=== PATIENT | female | born 1935 | race Caucasian/White ===

== ENCOUNTER 2020-02-26 17:58 | Inpatient (IN) | payer OTHER ==
[~2020-02-26] VITALS: Ht 167.6 cm; Wt 72.1 kg
[2020-02-26] VITALS (9 sets, daily range): BP systolic 55–188; BP diastolic 26–75
--- NOTE | ~2020-02-26 | EMS ---
[address] [address] EMS Patient Care Report Name: ADELITA LYNNE Room: [address] IN [facility]#: [id number] Admission: 02/26/20 Attend Phys: Erickson Ortega MD Discharge: Date of : 35 Report #: [id number] THIS REPORT FOR: //name// Report Transmitted: 03/05/2020 10:57 EMS Care Summary [employer] [facility] Incident [phone] @ 02/26/2020 16:51 Incident Location [address] [place] [address] Patient ADELITA LYNNE Female, 84 Years 1935 Patient Address [address] [place] [address] Patient History Dementia, Patient Allergies No known allergies, Patient Medications Donepezil, Chief Complaint SOA Disposition Transported Lights/Bowers Dispatch Reason Breathing Problem Transported To [facility] Narrative Upon EMS arrival the patient was sitting in a chair in a bedroom in the residence A&Ox0 GCS 8 with a c/c of SOA and altered mental status x2 days. The patient had labored and tachypneic respiration with audible wet lung sounds and the patient was cyanotic and mottled. [address] [address] EMS Patient Care Report Name: ADELITA LYNNE Room: [facility] IN [facility]#: [id number] Admission: 02/26/20 Attend Phys: Erickson Ortega MD Discharge: Date of : 35 Report #: [id number] The patient's and daughter in law were in the home and stated that the patient had been extremely lethargic and weak for the past two days. They stated that the patient has also been experiencing difficulty breathing for the past 2 days and they have been unable to get the patient to eat or drink anything. They stated that the patient has dementia and is oriented to self only. They state she sometimes is aware of her family members but is not oriented to time, place or event. The patient's family stated that the patient is blind but suffers from no additional medical problems. The patient's family state that the patient is normally fully alert and is able to follow most commands. They stated that the patient has not left the house or come into contact with any known COVID-19 exposures but they have been out to the grocery store and done some other shopping during the past few weeks. EMS donned all required PPE for a suspected COVID-19 patient. EMS assessed the patient on scene and transferred the patient to a stair chair. The patient was secured with straps and moved out the front door of the residence to the cot. The patient was transferred to the cot, secured with straps and rails raised. The patient was loaded into the ambulance for transport to [facility]. The patient was attached to the air sampling and monitoring and vitals were assessed. The patient was found to be hypotensive, tachycardia and hypoxic. The patient was placed on a capnocannula at 6 L and ETCO2 was assessed. Defibrillation pads were placed on the patient as a precaution based on her condition. The patient was found to be in sinus tach. The patient's lungs had audible wet sounds and rhonchi and rales were present upon auscultation. An NPA was placed in the patient's left nare and the patient was placed on a NRB at 15L. This improved the patient's SPO2 but not her ETCO2. The patient continued to remain unresponsive. A 20 gauge IV was started in the patient's left hand and secured with a saline lock. The patient's blood pressure remained hypotensive but increased with the administration of O2. The patient's vitals and condition were continuously monitored throughout transport. The patient's overall condition remained unchanged throughout transport. The patient's skin color and condition was slightly improved upon arrival to the hospital with the administration of O2. The patient's respirations remained tachypneic and labored. No change in mental status was noted. A precautionary 12-lead EKG was performed and no signs [place] [address] EMS Patient Care Report Name: ADELITA LYNNE Room: [address] IN [facility]#: [id number] Admission: 02/26/20 Attend Phys: Erickson Ortega MD Discharge: Date of : 35 Report #: [id number] Initial Vitals @17:43P: 98,R: 30,BP: 117/96,GCS: 8,EtCO2: 17,SpO2: 94,Revised Trauma: 9, @17:49P: 101,R: 30,BP: 121/34,GCS: 8,EtCO2: 16,SpO2: 95,Revised Trauma: 9, @17:29P: 92,R: 30,BP: 73/27,GCS: 8,Temp: 97F,EtCO2: 18,SpO2: 84,Revised Trauma: 7, Assessments @17:05MENTAL:Unresponsive,SKIN:Cold,Cyanotic,Mottled,Pale,HEENT:Eyes: Right: Blind,Eyes: Left: Blind,Head/Face: No Abnormalities,Neck/Airway: No Abnormalities,LUNG SOUNDS:General: No Abnormalities,ABDOMEN:General: No Abnormalities,PELVIS//GI:No Abnormalities,EXTREMITIES:Left Arm: No Abnormalities,Right Arm: No Abnormalities,Left Leg: No Abnormalities,Right Leg: No Abnormalities,PULSE:NEURO: Impression Respiratory Failure Procedures @17:30Saline Lock 10cc (20 ga) Site: Hand-LeftResponse: UnchangedSucceeded@17:29 cc (20 ga) Site: Antecubital-LeftResponse: UnchangedFailed@17:40NPA Response: ImprovedSucceeded@17:27Oxygen FlowRate: 6 Device: CO2 Nasal Cannula Response: ImprovedSucceeded@17:41Oxygen FlowRate: 15 Device: Non Re-breather Mask (NRB) Response: ImprovedSucceeded@17:04ALS AssessmentResponse: UnchangedSucceeded@17:5012-Lead ECGResponse: UnchangedSucceeded@17:29General CommentsResponse: Unchanged Timeline 16:51,Call Received 16:51,Dispatched 16:56,En Route 17:03,On Scene 17:04,At Patient 17:04,ALS Assessment,Response: UnchangedSucceeded, 17:27,Depart Scene 17:27,Oxygen FlowRate: 6 Device: CO2 Nasal Cannula Response: ImprovedSucceeded, 17:29, cc 20 ga Site: Antecubital-Left,Response: UnchangedFailed, 17:29,General Comments,Response: Unchanged 17:29,BP: 73/27 M,PULSE: 92,RR: 30 R,SPO2: 84 Ox,ETCO2: 18 ,BG: ,PAIN: ,GCS: 8, 17:30,Saline Lock 10cc 20 ga Site: Hand-Left,Response: UnchangedSucceeded, 17:40,NPA Response: ImprovedSucceeded, 17:41,Oxygen FlowRate: 15 Device: Non Re-breather Mask (NRB) Response: ImprovedSucceeded, 17:43,BP: 117/96 M,PULSE: 98,RR: 30 R,SPO2: 94 Ox,ETCO2: 17 ,BG: ,PAIN: ,GCS: 8, 17:49,At Destination 17:49,BP: 121/34 M,PULSE: 101,RR: 30 R,SPO2: 95 Ox,ETCO2: 16 ,BG: ,PAIN: ,GCS: 8, [place] [address] EMS Patient Care Report Name: ADELITA LYNNE Room: [address] IN [facility]#: [id number] Admission: 02/26/20 Attend Phys: Erickson Ortega MD Discharge: Date of : 35 Report #: [id number] 17:50,Transfer Patient 17:50,12-Lead ECG,Response: UnchangedSucceeded, 18:31,Call Closed 18:31,In District Disclaimer v1.1 Copyright 2020 [employer] This EMS Care Summary contains data elements from the applicable legal record (which may be displayed differently). It is designed to provide pertinent information for the following purposes: continuity of care, clinical quality, and state data reporting. The complete legal record is available to ED staff and administrators of the receiving hospital in ES's Patient Tracker. All data is provided "as is."
[2020-02-26 18:42] LABS: HEMATOCRIT 37.8 % (37.0-47.0); HEMOGLOBIN 12.1 gm/dL (12.0-15.0); MCH 26.7 pg (26.0-34.0); MCV 83.6 fL (80.0-100.0); MPV 10.5 fl. (7.2-11.1); NUCLEATED RBCS 0 /100WBC; PLATELET COUNT* 215 thou/uL (150-400); RBC 4.51 mil/uL (4.20-5.00); RDW-CV 14.3 % (10.5-14.5); WBC 12.9 thou/uL (4.0-11.0)
[2020-02-26 18:52] LABS: CALCIUM 8.5 mg/dL (8.5-10.1); CREATININE 2.8 mg/dL (0.6-1.3); POTASSIUM 4.1 mmol/L (3.5-5.1)
[2020-02-26 18:55] LABS: APTT 22.3 Seconds (25.0-31.3); INR 1.5; PROTIME 15.4 Seconds (9.20-11.50)
[2020-02-26 19:14] LABS: ALBUMIN 2.2 g/dL (3.4-5.0); CK-MB MASS 1.6 ng/mL (<0.5-3.6); TOTAL BILIRUBIN 0.6 mg/dL (<0.1-1.0); TOTAL PROTEIN 7.1 g/dL (6.4-8.2)
[2020-02-26 19:23] LABS: ABSOLUTE LYMPHOCYTES 0.3 thou/uL (0.8-5.3); ABSOLUTE MONOCYTES 0.4 thou/uL (0.0-1.2); ABSOLUTE NEUTROPHILS 12.3 thou/uL (1.6-8.1); PLATELET ESTIMATE ADEQUATE
[2020-02-26 21:05] LABS: URINE BLOOD TRACE (Negative); URINE CLARITY CLOUDY; URINE COLOR DARK YELLOW; URINE GLUCOSE-RANDOM NEGATIVE (Negative); URINE KETONES NEGATIVE (Negative); URINE LEUKOCYTES-REFLEX TRACE (Negative); URINE NITRITE-REFLEX NEGATIVE (Negative); URINE PROTEIN TRACE (Negative); URINE SPECIFIC GRAVITY >= 1.030 (1.005-1.030)
[2020-02-26 21:07] LABS: URINE BILIRUBIN 2+ (Negative)
[2020-02-26 21:10] LABS: ICTOTEST (BILI CONFIRMATORY) Positive (Negative)
[2020-02-26 21:27] LABS: BACTERIA-REFLEX >30 Many /HPF (None Seen); CRYSTALS None Seen /LPF (None Seen); HYALINE CASTS 0-3 Few /LPF (None Seen); SQUAMOUS 0-3 Few /LPF (0-3); URINE RBC 3-10 Few /HPF (0-2); WBC CLUMPS Few (None Seen)
[2020-02-26] MEDS ORDERED: ARICEPT10 M1 PO (23:58)
[2020-02-27] VITALS (31 sets, daily range): BP systolic 43–175; BP diastolic 21–62
[2020-02-27 00:18] LABS: BE -10.6 mmol/L (-2 to +3); PCO2 42.1 mmHg (35.0-45.0)
[2020-02-27 00:28] LABS: PO2 287.9 mmHg (75.0-100.0); pH 7.217 (7.340-7.450)
[2020-02-27 02:51] LABS: BE -9.7 mmol/L (-2 to +3); PCO2 30.5 mmHg (35.0-45.0); pH 7.316 (7.340-7.450)
[2020-02-27 02:55] LABS: PO2 195.3 mmHg (75.0-100.0)
[2020-02-27 05:30] LABS: ABSOLUTE LYMPHOCYTES 0.8 thou/uL (0.8-5.3); ABSOLUTE NEUTROPHILS 14.4 thou/uL (1.6-8.1); BASOPHILS 0.2 %; EOSINOPHILS 0.1 %; HEMATOCRIT 35.8 % (37.0-47.0); HEMOGLOBIN 11.6 gm/dL (12.0-15.0); LYMPHOCYTES 5.2 %; MCH 26.6 pg (26.0-34.0); MCHC 32.3 g/dL (28.0-37.0); MCV 82.2 fL (80.0-100.0); MONOCYTES 6.2 %; MPV 10.4 fl. (7.2-11.1); NUCLEATED RBCS 0 /100WBC; PLATELET COUNT* 186 thou/uL (150-400); POLYS 88.3 %; RBC 4.35 mil/uL (4.20-5.00); RDW-CV 14.4 % (10.5-14.5); WBC 16.3 thou/uL (4.0-11.0)
[2020-02-27 05:40] LABS: CALCIUM 7.7 mg/dL (8.5-10.1); CREATININE 2.7 mg/dL (0.6-1.3); POTASSIUM 4.5 mmol/L (3.5-5.1)
--- NOTE | 2020-02-27 10:46 | EKG ---
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: TP : 1935 Requested By: Ashok Beyer Order Number: [id number] MD: Delgado Desai Measurements Intervals Dixon Rate: 95 P: 69 TN: 119 QRS: 65 QRSD: 90 T: 55 QT: 340 QTc: 428 Interpretive Statements Sinus rhythm Borderline short TN interval Right atrial enlargement Abnormal R-wave progression, early transition No previous ECG available for comparison Electronically Signed On 02-27-2020 10:44:53 CDT by Delgado Desai [email or web address] <ELECTRONICALLY SIGNED> By: Delgado Desai MD, [facility] 02/27/20 1044 1802 1802 Delgado Desai MD, [facility] /EPI
[2020-02-28] VITALS (32 sets, daily range): BP systolic 82–131; BP diastolic 38–56
[2020-02-28 04:58] LABS: HEMATOCRIT 31.1 % (37.0-47.0); HEMOGLOBIN 10.2 gm/dL (12.0-15.0); MCH 26.9 pg (26.0-34.0); MCHC 32.9 g/dL (28.0-37.0); MCV 81.7 fL (80.0-100.0); MPV 10.5 fl. (7.2-11.1); RBC 3.8 mil/uL (4.20-5.00); RDW-CV 14.6 % (10.5-14.5); WBC 12.4 thou/uL (4.0-11.0)
[2020-02-28 05:12] LABS: CALCIUM 7.9 mg/dL (8.5-10.1); CREATININE 2.3 mg/dL (0.6-1.3); POTASSIUM 3.9 mmol/L (3.5-5.1)
[2020-02-28 16:20] LABS: BE -11.7 mmol/L (-2 to +3); PCO2 VENOUS 39.1 mmHg (41.0-51.0); PO2 VENOUS 131.2 mmHg (35.0-45.0)
[2020-02-29] VITALS (27 sets, daily range): BP systolic 87–136; BP diastolic 36–86
[2020-02-29 06:33] LABS: HEMATOCRIT 28.4 % (37.0-47.0); HEMOGLOBIN 9.4 gm/dL (12.0-15.0); MCH 27.2 pg (26.0-34.0); MCHC 33.1 g/dL (28.0-37.0); MCV 82.1 fL (80.0-100.0); MPV 10.4 fl. (7.2-11.1); RBC 3.45 mil/uL (4.20-5.00); RDW-CV 14.4 % (10.5-14.5); WBC 8.8 thou/uL (4.0-11.0)
[2020-02-29 06:55] LABS: BE -9.6 mmol/L (-2 to +3); PCO2 VENOUS 33.9 mmHg (41.0-51.0); PO2 VENOUS 158.2 mmHg (35.0-45.0)
[2020-02-29 07:42] LABS: ALBUMIN 1.5 g/dL (3.4-5.0); CALCIUM 7.6 mg/dL (8.5-10.1); CREATININE 1.5 mg/dL (0.6-1.3); MAGNESIUM 2.3 mg/dL (1.8-2.4); POTASSIUM 4.1 mmol/L (3.5-5.1); TOTAL BILIRUBIN 0.3 mg/dL (<0.1-1.0); TOTAL PROTEIN 5.2 g/dL (6.4-8.2)
--- NOTE | 2020-02-29 07:44 | CON ---
[address] [address] CONSULTATION Name: ADELITA LYNNE Room: [address] IN [facility].#: [id number] Admission: 02/26/20 Attend Phys: Erickson Ortega MD Discharge: Date of : 35 Report #: [id number] THIS REPORT FOR: //name// cc: Kalia Smith Ahmad W. DO ~ THIS REPORT FOR: //name// CC: Kalia Ortega DATE OF SERVICE: 02/28/2020 INFECTIOUS DISEASE CONSULTATION ATTENDING PHYSICIAN: Erickson Ortega MD REASON FOR EVALUATION: Positive blood culture. HISTORY OF PRESENT ILLNESS: Chart reviewed, patient examined. This is an 84-year-old, apparently with history of dementia, who presented to the Emergency Room on the date of admission noted to be with progressive dyspnea with worsening encephalopathy. It is reportedly unresponsive. On evaluation, was found to have low saturations, confirmed to be hypoxemic. She was intubated. The initial chest x-ray raised question of a dense right basilar pneumonitis, also noted moderate pyuria. Now urine culture with growth of Escherichia coli greater than 10 to the fifth. Did have 1 out of 2 positive blood cultures with gram-positive cocci. At this point, she is nonresponsive, maintained on ventilatory support with FiO2 of 0.4. She was given combination therapy initially with piperacillin, tazobactam, vancomycin, and azithromycin. She has generally been more hypothermic. She is on pressor support with norepinephrine. ALLERGIES: Not clear. CURRENT MEDICATIONS: Include pantoprazole, propofol, norepinephrine, Zosyn, p.r.n. analgesics, and antiemetics. 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 SOCIAL HISTORY: Unclear. FAMILY HISTORY: Noncontributory. REVIEW OF SYSTEMS: Not obtainable. PHYSICAL EXAMINATION: [place] [address] CONSULTATION Name: ADELITA LYNNE Room: [address] IN [facility].#: [id number] Admission: 02/26/20 Attend Phys: Erickson Ortega MD Discharge: Date of : 35 Report #: [id number] GENERAL: She appears chronically ill. She has got some hirsutism. She is supine, maintained on ventilatory support with an ET tube. She has an OG tube well. Appears undernourished. VITAL SIGNS: Temperature now 98.2, pulse 69, respirations 20, and blood pressure supported 108/44. SKIN: Warm, dry, no rashes. HEENT: Otherwise, unremarkable. NECK: Seemingly supple. LUNGS: Few scattered coarse breath sounds. HEART: Regular. I do not appreciate murmur. ABDOMEN: Soft. There are no apparent peritoneal signs. GENITOURINARY: Deferred. RECTAL: Deferred. EXTREMITIES: She does have some lower extremity edema. LABORATORY AND X-RAY DATA: Initial lactic acid is 6.0. CBC: White count 12.9, H and H 12.1 and 37.8, platelets 215,000. Does have lymphocytopenia of 300. Electrolytes: Sodium 148, potassium 4.1, chloride 112, bicarbonate is 17, anion gap of 19, BUN and creatinine 113 and 2.8, and glucose of 197. LFTs unremarkable. Albumin of 2.2, total protein 7.1. Estimated GFR of 16 initially. Repeat CBC showed an estimated GFR of 20. Urine culture with greater than 10 to the fifth gram-negative rods identified as Escherichia coli. Lactic acid is now 1.6. CT of the chest, there is a pleural based mass along the superior segment of the right lower lobe. There is question of a bronchogenic neoplasm. Mesothelioma is an additional consideration. CT abdomen and pelvis, no inflammatory process, pleural calcifications, right lung base. Urinalysis 16-25 white cells, greater than 30 bacteria. ASSESSMENT AND PLAN: Septic shock, I suspect on the basis of complicated urinary tract infection, so we can exclude pneumonitis, although the imaging is not so much for inflammatory. Positive blood culture. We should have reasonable coverage. It may well be a false positive given 1 out of 2 nature of the gram-positive cocci. Overall, her prognosis appears quite guarded. Continue efforts to wean off support. We will await those results, adjust antibiotics as needed. <ELECTRONICALLY SIGNED> By: Kain Leija MD 02/29/20 0744 1317 2101Jomike Leija MD /nt
[2020-02-29 10:08] LABS: PCO2 36.4 mmHg (35.0-45.0); pH 7.303 (7.340-7.450)
[2020-02-29 10:09] LABS: PO2 179.4 mmHg (75.0-100.0)
[2020-03-01] VITALS (23 sets, daily range): BP systolic 89–125; BP diastolic 36–65
[2020-03-01 05:56] LABS: CALCIUM 7.9 mg/dL (8.5-10.1); CREATININE 1.3 mg/dL (0.6-1.3); MAGNESIUM 2.2 mg/dL (1.8-2.4); POTASSIUM 4.3 mmol/L (3.5-5.1)
[2020-03-02] VITALS (20 sets, daily range): BP systolic 108–134; BP diastolic 41–58
[2020-03-02 05:39] LABS: HEMATOCRIT 27.4 % (37.0-47.0); MCH 26.7 pg (26.0-34.0); MCHC 32.8 g/dL (28.0-37.0); MCV 81.5 fL (80.0-100.0); MPV 9.8 fl. (7.2-11.1); RBC 3.37 mil/uL (4.20-5.00); RDW-CV 14.6 % (10.5-14.5); WBC 5.3 thou/uL (4.0-11.0)
[2020-03-02 05:59] LABS: CALCIUM 8.1 mg/dL (8.5-10.1); CREATININE 1.2 mg/dL (0.6-1.3); MAGNESIUM 2.2 mg/dL (1.8-2.4)
[2020-03-02 13:44] LABS: URINE BILIRUBIN NEGATIVE (Negative); URINE BLOOD 1+ (Negative); URINE CLARITY CLEAR; URINE COLOR YELLOW; URINE GLUCOSE-RANDOM NEGATIVE (Negative); URINE KETONES NEGATIVE (Negative); URINE LEUKOCYTES-REFLEX NEGATIVE (Negative); URINE NITRITE-REFLEX NEGATIVE (Negative); URINE PROTEIN TRACE (Negative); URINE SPECIFIC GRAVITY >= 1.030 (1.005-1.030); URINE UROBILINOGEN 0.2 E.U./dl (0.2-1.0)
[2020-03-02 13:53] LABS: BACTERIA-REFLEX None Seen /HPF (None Seen); CRYSTALS None Seen /LPF (None Seen); FINE GRANULAR CASTS 0-3 Few /LPF (None Seen); SQUAMOUS 0-3 Few /LPF (0-3); URINE RBC 0-2 Rare /HPF (0-2); URINE WBC-REFLEX 0-5 Rare /HPF (0-5)
[2020-03-03] VITALS: BP 119/43
[2020-03-03 04:00] VITALS: BP 118/41
[2020-03-03 08:01] VITALS: BP 143/56
[2020-03-03 16:28] VITALS: BP 175/75
[2020-03-03 18:08] VITALS: BP 144/58
[2020-03-03 19:51] VITALS: BP 136/47
[2020-03-04 04:03] LABS: ABSOLUTE EOSINOPHILS 0.1 thou/uL (0.0-0.7); ABSOLUTE LYMPHOCYTES 0.5 thou/uL (0.8-5.3); ABSOLUTE MONOCYTES 0.4 thou/uL (0.0-1.2); ABSOLUTE NEUTROPHILS 4.3 thou/uL (1.6-8.1); BASOPHILS 0.7 %; EOSINOPHILS 1.8 %; HEMATOCRIT 29.7 % (37.0-47.0); LYMPHOCYTES 8.9 %; MCH 27.1 pg (26.0-34.0); MCHC 33.5 g/dL (28.0-37.0); MCV 81.1 fL (80.0-100.0); MONOCYTES 6.9 %; MPV 10.3 fl. (7.2-11.1); NUCLEATED RBCS 0 /100WBC; PLATELET COUNT* 134 thou/uL (150-400); POLYS 81.7 %; RBC 3.67 mil/uL (4.20-5.00); RDW-CV 14.7 % (10.5-14.5); WBC 5.2 thou/uL (4.0-11.0)
[2020-03-04 04:49] LABS: ALBUMIN 1.6 g/dL (3.4-5.0); CALCIUM 8.1 mg/dL (8.5-10.1); POTASSIUM 3.2 mmol/L (3.5-5.1); TOTAL BILIRUBIN 0.4 mg/dL (<0.1-1.0); TOTAL PROTEIN 6.2 g/dL (6.4-8.2)
[2020-03-04 07:33] VITALS: BP 139/54
[2020-03-04 13:25] LABS: CHOLESTEROL 165 mg/dL (<200); HDL CHOLESTEROL 29 mg/dL (>40); LDL CHOLESTEROL 92 mg/dL (<100); TC:HDL 5.7 Ratio (Not establshd); TRIGLYCERIDE 223 mg/dL (<150); VLDL 45 mg/dL (<40)
[2020-03-04 13:26] LABS: SERUM ASSESSMENT Clear
[2020-03-04 15:15] VITALS: BP 111/85
--- NOTE | 2020-03-04 16:24 | 2DMMODE ---
[place] [address] 2 D/M-MODE ECHOCARDIOGRAM Name: LYNNEADELITA Anthony Room: [address] IN [facility]#: [id number] Admission: 02/26/20 Attend Phys: Erickson Ortega, Discharge: Date of : 35 Date of Service: 03/04/20 1622 Report #: [id number] THIS REPORT FOR: cc: Kalia Smith,Musa Jack MD [facility] ~ APPROVED REPORT Study performed: 03/04/2020 14:49:52 EXAM: Comprehensive 2D, Doppler, and color-flow Echocardiogram Patient Location: In-Patient Room #: [facility] Status: routine BSA: 1.81 HR: 82 bpm BP: 139/54 mmHg Rhythm: NSR Other Information Study Quality: Good Indications CVA/TIA Echo Enhancing Agent Indication: Rule out Shunt Agent(s) / Amount(s) Used: Agitated Saline 10 cc 2D Dimensions IVSd: 12.26 (7-11mm) LVOT Diam: 18.30 (18-24mm) LVDd: 39.23 mm PWd: 9.44 (7-11mm) LVDs: 26.41 (25-40mm) Aortic Root: 25.60 mm Volumes Left Atrial Volume (Systole) LA ESV Index: 16.40 mL/m2 Aortic Valve AoV Peak Quan.: 1.23 m/s AO Peak Gr.: 6.04 mmHg LVOT Max P.86 mmHg AO Mean Gr.: 3.12 mmHg LVOT Mean P.28 [place] [address] 2 D/M-MODE ECHOCARDIOGRAM Name: ADELITA LYNNE Anthony Room: [address] IN [facility]#: [id number] Admission: 02/26/20 Attend Phys: Erickson Ortega, Discharge: Date of : 35 Date of Service: 03/04/20 1622 Report #: [id number] LVOT Max V: 1.21 m/s AO V2 VTI: 24.60 cm LVOT Mean V: 0.67 m/s ARI (VTI): 2.51 cm2 LVOT V1 VTI: 23.49 cm Mitral Valve E/A Ratio: 0.64 MV Decel. Time: 302.50 ms MV E Max Quan.: 0.78 m/s MV PHT: 87.73 ms MVA (PHT): 2.51 cm2 TDI E/Lateral E': 8.67 E/Medial E': 8.67 Medial E' Quan.: 0.09 m/s Lateral E' Quan.: 0.09 m/s Pulmonary Valve PV Peak Quan.: 1.17 m/s PV Peak Gr.: 5.51 mmHg Tricuspid Valve RAP Estimate: 5.00 mmHg TR Peak Gr.: 30.79 mmHg RVSP: 35.00 mmHg PA Pressure: 35.00 mmHg Left Ventricle The left ventricle is normal size. There is normal LV segmental wall motion. There is normal left ventricular wall thickness. Left ventricular systolic function is normal. LVEF is 60-65%. Grade I - abnormal relaxation pattern. Right Ventricle The right ventricle is normal size. The right ventricular systolic function is normal. Atria The left atrium size is normal. The interatrial septum is intact with no evidence for an atrial septal defect. The right atrium size is normal. Aortic Valve Mild aortic valve sclerosis. No aortic regurgitation is present. There is no aortic valvular stenosis. Mitral Valve There is mitral annular calcification. There is no mitral valve regurgitation noted. No evidence [place] [address] 2 D/M-MODE ECHOCARDIOGRAM Name: ADELITA LYNNE Room: [address]#: [id number] Admission: 02/26/20 Attend Phys: Erickson Ortega, Discharge: Date of : 35 Date of Service: 03/04/20 1622 Report #: [id number] Tricuspid Valve The tricuspid valve is normal in structure. Trace tricuspid regurgitation. Mild pulmonary hypertension. Pulmonic Valve The pulmonary valve is normal in structure. There is no pulmonic valvular regurgitation. Great Vessels The aortic root is normal in size. IVC is normal in size and collapses >50% with inspiration. Pericardium There is no pericardial effusion. <Conclusion> The left ventricle is normal size. There is normal left ventricular wall thickness. Left ventricular systolic function is normal. LVEF is 60-65%. Grade I - abnormal relaxation pattern. Trace tricuspid regurgitation. Mild pulmonary hypertension. IVC is normal in size and collapses >50% with inspiration. The interatrial septum is intact with no evidence for an atrial septal defect. <ELECTRONICALLY SIGNED> By: Musa Espinal MD, FACC 03/04/20 162 21 21 Musa Espinal MD, FACC /INF
[2020-03-04 20:44] VITALS: BP 150/55
[2020-03-05] VITALS: BP 143/51
[2020-03-05 06:47] LABS: ABSOLUTE EOSINOPHILS 0.1 thou/uL (0.0-0.7); ABSOLUTE LYMPHOCYTES 0.4 thou/uL (0.8-5.3); ABSOLUTE MONOCYTES 0.4 thou/uL (0.0-1.2); BASOPHILS 0.5 %; EOSINOPHILS 2.3 %; HEMATOCRIT 28.6 % (37.0-47.0); HEMOGLOBIN 9.6 gm/dL (12.0-15.0); LYMPHOCYTES 7.5 %; MCH 26.9 pg (26.0-34.0); MCHC 33.5 g/dL (28.0-37.0); MCV 80.3 fL (80.0-100.0); MONOCYTES 6.4 %; MPV 10.3 fl. (7.2-11.1); NUCLEATED RBCS 0 /100WBC; PLATELET COUNT* 172 thou/uL (150-400); POLYS 83.3 %; RBC 3.56 mil/uL (4.20-5.00); RDW-CV 14.5 % (10.5-14.5)
[2020-03-05 06:58] LABS: CALCIUM 8.2 mg/dL (8.5-10.1); POTASSIUM 3.7 mmol/L (3.5-5.1)
[2020-03-05 08:15] VITALS: BP 160/74
[2020-03-05 16:11] VITALS: BP 142/58
[2020-03-05 20:00] VITALS: BP 104/58
[2020-03-06 08:00] VITALS: BP 176/56
[2020-03-06] MEDS ORDERED: ASPIRIN EC81 M1 PO (12:33)
[2020-03-06] MEDS ORDERED: IPRAT-ALBUT 0.5-3 ML INH (12:38)
[2020-03-06] MEDS ORDERED: MIRALAX119 GM PO (12:39)
[2020-03-06] MEDS ORDERED: PROTONIX40 M4 PO (12:40)
[2020-03-06] MEDS ORDERED: PROVIGIL 100 M100 MG PO (12:41)
[2020-03-06] MEDS ORDERED: SUPER THERAVIT1 EACH PO (12:41)
[2020-03-06] MEDS ORDERED: LEVO-T25 MCG PO (12:41)
[2020-03-06 14:25] VITALS: BP 176/56
== END 2020-03-06 15:45 | DRG 871 ==
LOC: M.ERS 17:58 → M.TBA-ER 18:47 → M.ICU 18:47 → M.2W 18:47 → M.ICU 18:47 → M.2W 03-04 15:12
PROVIDERS: Family Medicine; Internal Medicine; Internal Medicine Pulmonary Disease; Psychiatry & Neurology Neurology; Specialist; ADMIT Internal Medicine
PROC: 02HV33Z Insertion of Infusion Device into Superior Vena Cava, Percutaneous Approach (ICD-10-PCS; principal; 2020-02-28)
PROC: 0BH18EZ Insertion of Endotracheal Airway into Trachea, Via Natural or Artificial Opening Endoscopic (ICD-10-PCS; principal; 2020-02-28)
PROC: 5A1935Z Respiratory Ventilation, Less than 24 Consecutive Hours (ICD-10-PCS; principal; 2020-02-28)
DX: A41.9 Sepsis, unspecified organism (principal); R65.21 Severe sepsis with septic shock; J18.9 Pneumonia, unspecified organism; J96.01 Acute respiratory failure with hypoxia; N17.0 Acute kidney failure with tubular necrosis; E43 Unspecified severe protein-calorie malnutrition; I63.9 Cerebral infarction, unspecified; N39.0 Urinary tract infection, site not specified; G93.40 Encephalopathy, unspecified; E87.2 Acidosis; C34.90 Malignant neoplasm of unspecified part of unspecified bronchus or lung; E87.0 Hyperosmolality and hypernatremia; G30.9 Alzheimer's disease, unspecified; F02.80 Dementia in other diseases classified elsewhere, unspecified severity, without behavioral disturbance, psychotic disturbance, mood disturbance, and anxiety; B96.20 Unspecified Escherichia coli [E. coli] as the cause of diseases classified elsewhere; I10 Essential (primary) hypertension; Z79.899 Other long term (current) drug therapy; Z03.818 Encounter for observation for suspected exposure to other biological agents ruled out; Z68.25 Body mass index [BMI] 25.0-25.9, adult